=== PATIENT | male | born 1970 | race Caucasian/White ===

== ENCOUNTER 2020-06-18 15:11 | Emergency (ER) | payer SELFPAY ==
[~2020-06-18] VITALS: Ht 182.9 cm; Wt 129.8 kg
[2020-06-18 15:11] VITALS: BP 188/106
[2020-06-18] MEDS ORDERED: ROSU40TA4 PO (15:21)
[2020-06-18] MEDS ORDERED: FENO145T7 PO (15:21)
[2020-06-18] MEDS ORDERED: AMLO10TA PO (15:21)
[2020-06-18] MEDS ORDERED: CLAR10CA3 PO (16:37)
[2020-06-18] MEDS ORDERED: PRED20TA PO (16:37)
[2020-06-18] MEDS ORDERED: predniSONE 20 MG TAB PO ONE (16:40)
== END 2020-06-18 16:47 | disposition home or self-care (01) ==
LOC: M ED 15:11
DX: L25.9 Unspecified contact dermatitis, unspecified cause (principal); I10 Essential (primary) hypertension; E78.5 Hyperlipidemia, unspecified; Z79.899 Other long term (current) drug therapy